=== PATIENT | male | born 1935 | race Caucasian/White ===

== ENCOUNTER 2017-10-03 09:17 | Emergency (ER) | payer MEDICAID ==
[~2017-10-03] VITALS: Ht 162.6 cm; Wt 57.1 kg
[2017-10-03 11:06] LABS: microscopic required? YES; urine erythrocyte 3+ (NEGATIVE)
[2017-10-03 12:12] VITALS: BP 114/65
== END 2017-10-03 12:17 | disposition home or self-care (01) ==
LOC: ED 09:17
PROVIDERS: Emergency Medicine
DX: N39.0 Urinary tract infection, site not specified (principal); J20.9 Acute bronchitis, unspecified; I10 Essential (primary) hypertension
CPT/HCPCS: J0696; J7613; J7644; Q0092